=== PATIENT | female | born 1960 | race Caucasian/White ===

== ENCOUNTER → 2017-05-04 | Outpatient (CLI) | payer OTHER ==
[~2017-05-04] MED LIST: ALEVE220 MG PO; COVARYX TABLET1 EACH PO; PRILOSEC40 MG PO; Z-QUIL PO
== END | disposition home or self-care (01) ==
LOC: CDC 10:44
DX: Z01.810 Encounter for preprocedural cardiovascular examination (principal); M25.532 Pain in left wrist; M19.032 Primary osteoarthritis, left wrist; G56.02 Carpal tunnel syndrome, left upper limb; R94.31 Abnormal electrocardiogram [ECG] [EKG]
CPT/HCPCS: 93000